=== PATIENT | female | born 1990 | race Two or more races ===

== ENCOUNTER 2017-08-02 03:40 | Inpatient (IN) | payer OTHER ==
[~2017-08-02 03:40] MED LIST: DEXTROSE 5%-LACTATED RINGERS 1,000 ML IV SCH
[2017-08-02 04:47] LABS: BASO % 0.6 % (0-2.0); EOS % 0.6 % (0-4.5); HEMATOCRIT 39.3 % (32.4-45.2); HEMOGLOBIN 13.4 GM/dL (10.7-15.3); MCH 31.9 pg (25.7-33.7); MEAN CELL VOLUME 93.6 fl (80-96); MEAN PLT VOLUME 10.2 fl (7.5-11.1); MONO % 12.2 % (3.8-10.2); NEUT % 66.6 % (42.8-82.8); PLATELET COUNT 193 K/MM3 (134-434); RDW 13.7 % (11.6-15.6); WHITE BLOOD COUNT 11.3 K/mm3 (4.0-10.0)
[2017-08-02 05:04] LABS: INR 0.91 (0.82-1.09); PROTHROMBIN TIME (PATIENT) 10.3 SEC (9.98-11.88)
[2017-08-02 05:20] VITALS: BMI 24.4
[2017-08-02 05:26] LABS: ANION GAP 9 (8-16); BLOOD UREA NITROGEN 14 mg/dL (7-18); CALCIUM 8.5 mg/dL (8.5-10.1); CHLORIDE 107 mmol/L (98-107); CO2 22 mmol/L (21-32); CREATININE 0.6 mg/dL (0.55-1.02); GLUCOSE,RANDOM 104 mg/dL (74-106); SODIUM 138 mmol/L (136-145)
[2017-08-02 06:54] LABS: COCAINE, UR NEGATIVE ng/ml (CUTOFF=300); METHADONE, UR NEGATIVE ng/ml (CUTOFF=300); OPIATES, URI NEGATIVE ng/ml (CUTOFF=300); PHENCYCLIDINE,URINE NEGATIVE ng/ml (CUTOFF=25); URINE AMPHETAMINES NEGATIVE ng/ml (CUTOFF=500); URINE BARBITURATES NEGATIVE ng/ml (CUTOFF=200); URINE BENZODIAZEPINES NEGATIVE ng/ml (CUTOFF=200)
[2017-08-02] MEDS ORDERED: BUTORPHANOL TARTRATE 1 MG/ML VIAL IVPB ONE (07:39)
[2017-08-02] MEDS ORDERED: PROMETHAZINE HCL 25 MG/1 ML VIAL IVPUSH ONE (07:39)
[2017-08-02] MEDS ORDERED: SODIUM PHOSPHATE/NA BIPHOS 133 ML ENEMA PR ONE (07:41)
[2017-08-02] MEDS ORDERED: DEXTROSE 5%-LACTATED RINGERS 1,000 ML IV SCH (07:45)
--- NOTE | 2017-08-02 07:45 | HP ---
Past Medical History - Primary Care Physician PCP:: Mary Treviño - Admission Chief Complaint: 27 yrs , 41 weeks gestation is admitted in early labor. onset LP since 1.00AM History of Present Illness: pnc t 2, [facility] , Late registration at 29 weeks . wt gain 60 LBS. 05/11/17 Panel : Pap nilm, gc/ct neg.. O pos, Rpr nr, Hbsag neg, Rubella pos, Sickle neg, Hiv neg, 1 Hr [id number], Quantiferon neg 07/06/17 : gc/ct/ neg.GBS neg.Hiv neg pt was followed by MFM for growth Post dated pregn was monitored by NST & BPP 07/29/17 sono SLIUP,Vx, pt was placed on Bpp8/8, ÓSCAR 17.4 cm, EFW 8'13" . Pt was placed on Adenosine for SVT in early pregn by her ladies underwear operator on Adenosine in [place] . cardiology consult from Heladio Lizama obtained in February & reviewed . expectant observation . no meds reqd. she was on baby aspirin until 36 weeks . c History Source: Patient, Medical Record Limitations to Obtaining History: No Limitations - Past Medical History CAREER DEVELOPMENT COORDINATOR: No: Alzheimer's, CVA, Dementia, Migraine, Multiple Sclerosis, Peripheral Neuropathy, Parkinson's, Seizure, Syncope, TIA, Vertigo, Other Cardiovascular: Yes: Other (h/o SVT , cardiloloy consult with Dr Heladio Lizama , imp non sp tachycardia .) Pulmonary: No: Asthma, Bronchitis, Cancer, COPD, O2 Dependent, Pneumonia, Previously Intubated, Pulmonary Embolus, Pulmonary Fibrosis, Sleep Apnea, Other Gastrointestinal: No: Ascites, Cancer, Constipation, Crohn's Disease, Diverticulitis, Diverticulosis, Esophageal Varices, Gastritis, GERD, GI Bleed, Hemorrhoids, Hiatal Hernia, Inflamatory Bowel Disease, Irritable Bowel Disease, Pancreatitis, Peptic Ulcer Disease, Ulcerative Colitis, Other Hepatobiliary: No: Cirrhosis, Cholelithiasis, Cholecystitis, Choledocholithiasis , Hepatitis A, Hepatitis B, Hepatitis C, Other Reproductive: No: Ectopic , Endometriosis, Fibroids, PID, Polycystic Ovary Syndrome, Postmenopausal, Other ...: 1 ...Para: 0 ...Term: 0 ...: 0 ...Spon : 0 ...Induced : 0 ...Multiple Gestation: 0 ...LMP: 10/18/16 ... Weeks Gestation by Dates: 41.1 ...EDC by Dates: 07/25/17 ...EDC by Sono: 07/25/17 Infectious Disease: No: Tuberculosis (Quantiferon neg 05/11/17 h/o + ppd in past cxr neg in 2009 , she took tb meds only for 1 month in [place]) Psych: Yes: Anxiety Musculoskeletal: Yes: Other (declined) ENT: Yes: Other (declined) Endocrine: No: Mchenry's Disease, [place]'s Disease, Diabetes Insipidus, Diabetes Mellitus, Hyperparathyroidism, Hyperthyroidism, Hypothyroidism, Osteopenia, SIADH, Other - Past Surgical History Past Surgical History: Yes: Appendectomy Hx Myomectomy: No Hx Transabdominal Cerclage: No - Smoking History Smoking history: Never smoked Have you smoked in the past 12 months: No - Alcohol/Substance Use Hx Alcohol Use: No History of Substance Use: reports: None Home Medications - Allergies Allergies/Adverse Reactions: Allergies Allergy/AdvReac Type Severity Reaction Status Date / Time No Known Drug Allergies Allergy Verified 08/02/17 04:48 - Home Medications Home Medications: Ambulatory Orders Vitamins (Sjr) - 1 tab PO DAILY 08/02/17 Physical Exam - Maternity Vital Signs: Vital Signs Temperature 98.5 F 08/02/17 06:00 Pulse Rate 86 08/02/17 06:00 Respiratory Rate 20 08/02/17 06:00 Blood Pressure 123/74 08/02/17 06:00 O2 Sat by Pulse Oximetry (%) Constitutional: Yes: Well Nourished, Moderate Distress Eyes: Yes: WNL HENT: Yes: WNL, Normocephalic Neck: Yes: WNL Cardiovascular: Yes: WNL, Regular Rate and Rhythm Lungs: Clear to auscultation Breast(s): Yes: WNL - Abdominal Exam/OB Fundal Height: 40 Number of Fetuses: Single Presentation: Vertex Contractions: Yes Regularity: Irregular (2-4 min) Monitor Mode: External (140) Heart Rate Location: [facility] Category: I Accelerations: Uniform - Vaginal Exam/OB Vaginal Bleediing: Bloody Show Dilatation (cm): 1 Effacement (%): 80 Amniotic Membrane Status: Intact Presentation: Vertex/Position (exam at 7.30 AM) Station: -3 - Physical Exam Musculoskeletal: Yes: WNL Extremities: Yes: WNL. No: Calf Tenderness Edema: Yes Edema: LLE: 2+, RLE: 2+ Integumentary: Yes: WNL Deep Tendon Reflex Grade: Normal +2 ...Motor Strength: WNL Psychiatric: Yes: WNL, Alert, Oriented - Labs Lab Results: CBC, BMP 08/02/17 04:25 08/02/17 04:25 Problem List - Problems (1) 41 weeks gestation of Code(s): Z3A.41 - 41 WEEKS GESTATION OF (2) Labor established Code(s): WQA4013 - Assessment/Plan 27 yrs 41 weeks gestation admitted in early labor Plan trial of labor for vag del Stadol + phenrgan for labor analgesia followed by epidural Pitocin augmentation PRN
[2017-08-02] MEDS ORDERED: OXYTOCIN 30 UNITS in 0.9% NS 30 UNIT/500 ML INFUS.BAG IVPB ONE (11:41)
[2017-08-02] MEDS ORDERED: OXYTOCIN 30 UNITS in 0.9% NS 30 UNIT/500 ML INFUS.BAG IVPB SCH (12:15)
[2017-08-02] MEDS ORDERED: BUTORPHANOL TARTRATE 1 MG/ML VIAL ONE ×2 (12:39)
[2017-08-02] MEDS ORDERED: PROMETHAZINE HCL 25 MG/1 ML VIAL ONE (12:40)
[2017-08-02] MEDS ORDERED: ELECTROLYTE-148 SOLN 1,000 ML IV SCH (15:00)
[2017-08-02] MEDS ORDERED: OXYTOCIN 20 UNITS in 0.9% NS 20 UNIT/1,000 ML INFUS.BAG IV ONE (15:07)
[2017-08-02] MEDS ORDERED: LIDOCAINE HCL 1% PRESERVATIVE FREE - 30ML VIAL ONE (15:07)
[2017-08-02] MEDS ORDERED: FENTANYL/BUPIVACAINE/NS/PF - PCEA - 50 ML DISP.SYRIN EP ONE (15:11)
--- NOTE | 2017-08-02 17:01 | PN ---
Progress Note, Labor Vaginal Exam #1 Labor Exam Date: 08/02/17 Labor Exam Time: 15:40 Heart Rate (range): 150 Dilatation: 8-9 Effacement (%): 100 Amniotic Membrane Status: Ruptured Presentation: Vertex/Position Station: 0 Remarks: uc 3-5 min irregular, , dysfucional fhr cat-1 SROM at 2.50 PM brown color fluid Epidural given at 3.35 pm Vaginal Exam #2 Labor Exam Date: 08/02/17 Labor Exam Time: 16:50 Heart Rate (range): 150 Dilatation: 9 Effacement (%): 100 Amniotic Membrane Status: Ruptured Station: +1 Remarks: cat-2 , mild variables . UC 2-4 min scalp electrode applied Selected Entries 08/02/17 16:15 Pulse Rate 97 H Blood Pressure 115/63 Vaginal Exam #3 Labor Exam Date: 08/02/17 Labor Exam Time: 18:00 Heart Rate (range): 155 Dilatation: antlip Amniotic Membrane Status: Ruptured Presentation: Vertex/Position Station: +2 Remarks: fhr cat-1 in Rt lateral position UC 1-[address] trial of labor Selected Entries 08/02/17 18:00 Temperature 98.4 F BP 104/45 Pulse 85 /min Vaginal Exam #4 Labor Exam Date: 08/02/17 Labor Exam Time: 19:00 Heart Rate (range): 150 Dilatation: 10 Effacement (%): 100 Amniotic Membrane Status: Ruptured Station: +3 Remarks: uc 1--2-3 min fhr cat-1 14.15 pt encouraged to push .
[2017-08-02] MEDS: ACETAMINOPHEN 325 MG TABLET (FP) PO PRN (20:50)
[2017-08-02] MEDS: IBUPROFEN 600 MG TABLET (FP) PO PRN (20:50)
[2017-08-02] MEDS ORDERED: IBUPROFEN 600 MG TABLET (FP) PO ONE (20:52)
[2017-08-02] MEDS ORDERED: ACETAMINOPHEN 325 MG TABLET (FP) ONE (20:52)
[2017-08-02 21:01] LABS: ARTERIAL BLOOD GAS BASE EXCESS -3.7 meq/l (-2-2); ARTERIAL BLOOD GAS PCO2 38.7 mmHg (35-45); ARTERIAL BLOOD GAS pH 7.35 (7.35-7.45)
[2017-08-02 21:09] LABS: ARTERIAL BLOOD GAS PO2 29.7 mmHg (80-100)
[2017-08-02 21:10] LABS: ARTERIAL BLD GAS O2 SATURATION 61.7 % (90-98.9)
[2017-08-02] MEDS ORDERED: WITCH HAZEL 50% (TUCKS) 40 PAD/JAR PAD TP PRN (21:10)
[2017-08-02] MEDS ORDERED: METHYLERGONOVINE MALEATE 0.2 MG/1 ML AMP IM PRN (21:10)
[2017-08-02] MEDS ORDERED: ACETAMINOPHEN 325 MG TABLET (FP) PO PRN (21:10)
[2017-08-02] MEDS ORDERED: BISACODYL 10 MG SUPP.RECT RC PRN (21:10)
[2017-08-02] MEDS ORDERED: BENZOCAINE 20% 57 GM BOTTLE TP PRN (21:10)
[2017-08-02] MEDS ORDERED: BENZOCAINE 28 GM HEMORRHOIDAL OINTMENT TP PRN (21:10)
[2017-08-02 21:12] LABS: VENOUS PC02 37.7 mmHg (38-52); VENOUS PH 7.36 (7.32-7.42); VENOUS PO2 32.3 mmHg (28-48)
[2017-08-02] MEDS ORDERED: OXYTOCIN 20 UNITS in 0.9% NS 20 UNIT/1,000 ML INFUS.BAG IV SCH (21:15)
[2017-08-02] MEDS ORDERED: oxyCODONE HCL 5 MG TABLET PO PRN (21:16)
--- NOTE | 2017-08-02 21:23 | PN ---
Delivery - Delivery Vaginal Delivery: No Problems, Spontaneous (delievered vx presentaion , JENNIFER position, cord around neckx1 released before delivery of shoulder ,& rest of the body delivered,immediate oral & nasal suction was done . placenta delivered uneventfully. Light meconium in AFluid noted) Type of Anesthesia: Local, Epidural Episiotomy/Laceration: Midline (episitomy was sutured in layers with chr catgut #2/0. Mucosa & sphincter intact) EBL (cc): 350 (bladder catheterized & emptied 50 ml) Delivery, Single - Stages of Labor Date 1st Stage Initiatied: 08/02/17 Time 1st Stage Initiated: 01:00 Date 2nd Stage Initiated: 08/02/17 Time 2nd Stage Initiated: 19:00 Date of Delivery: 08/02/17 Time of Delivery: 20:19 Date Placenta Delivered: 08/02/17 Time Placenta Delivered: 20:25 Placenta: Yes: Spontaneous, Uterine Exploration - Condition of Infant Milk House Worker/Egg Processor Present: No Gender: Male Weight: 8 lb 4 oz Position: Left, OA - 1 Minute Total Score: 9 5 Minutes Total Score: 9 - [place] Feeding Plan Initial Plan: Exclusive throughout hospitalization Remarks - Remarks Remarks: 27 yrs , 41 weeks gestation , admitted in early labpr . pnc at , [facility] Gbs neg. Stadol 2mg + Phenrgan 25 mg iv stat followed by epidural , was given for labor analgesia Intra course unevetful
--- NOTE | 2017-08-03 06:08 | PN ---
Post Progress Note - Subjective Subjective: c/o perineal soreness & cramps Post Day: 1 Type of Delivery: Vital Signs: Vital Signs Temperature 98.6 F 08/03/17 04:00 Pulse Rate 91 H 08/03/17 04:00 Respiratory Rate 20 08/03/17 04:00 Blood Pressure 105/70 08/03/17 04:00 O2 Sat by Pulse Oximetry (%) 100 08/02/17 22:00 Breast Exam: Yes: Soft. No: Engorged Uterus: Yes: Fundus Firm, Fundus below umbilicus, Non-tender Lochia: Yes: Rubra Lochia, amount: Moderate Extremities: Yes: Calves non-tender, Edema (+/=). No: Calf tenderness Perineum: Yes: Intact, Episiotomy (healing ) Activity: Ambulating - Labs Labs: CBC WBC 11.3 K/mm3 (4.0-10.0) H 08/02/17 04:25 RBC 4.20 M/mm3 (3.60-5.2) 08/02/17 04:25 Hgb 13.4 GM/dL (10.7-15.3) 08/02/17 04:25 Hct 39.3 % (32.4-45.2) 08/02/17 04:25 MCV 93.6 fl (80-96) 08/02/17 04:25 MCH 31.9 pg (25.7-33.7) 08/02/17 04:25 MCHC 34.0 g/dl (32.0-36.0) 08/02/17 04:25 RDW 13.7 % (11.6-15.6) 08/02/17 04:25 Plt Count 193 K/MM3 (134-434) 08/02/17 04:25 MPV 10.2 fl (7.5-11.1) 08/02/17 04:25 Neutrophils % 66.6 % (42.8-82.8) 08/02/17 04:25 Lymphocytes % 20.0 % (8-40) 08/02/17 04:25 Monocytes % 12.2 % (3.8-10.2) H 08/02/17 04:25 Eosinophils % 0.6 % (0-4.5) 08/02/17 04:25 Basophils % 0.6 % (0-2.0) 08/02/17 04:25 Problem List - Problems (1) 41 weeks gestation of Code(s): Z3A.41 - 41 WEEKS GESTATION OF (2) Labor established Code(s): DRG7194 - (3) Normal vaginal delivery Code(s): O80 - ENCOUNTER FOR FULL-TERM UNCOMPLICATED DELIVERY Assessment/Plan stable. plan cbc today encourage ambulation & po fluids
[2017-08-03] MEDS: IBUPROFEN 600 MG TABLET (FP) PO PRN ×2 (07:36→20:21)
[2017-08-03] MEDS: ACETAMINOPHEN 325 MG TABLET (FP) PO PRN ×2 (07:38→20:22)
[2017-08-03] MEDS: FERROUS SO4 325 MG TABLET (FP) PO SCH ×2 (07:39→17:18)
[2017-08-03 08:41] LABS: BASO % 0.2 % (0-2.0); EOS % 0.4 % (0-4.5); HEMATOCRIT 29.7 % (32.4-45.2); HEMOGLOBIN 10.1 GM/dL (10.7-15.3); LYMPH % 14.8 % (8-40); MEAN PLT VOLUME 9.4 fl (7.5-11.1); MONO % 9.8 % (3.8-10.2); NEUT % 74.8 % (42.8-82.8); PLATELET COUNT 170 K/MM3 (134-434); RBC 3.16 M/mm3 (3.60-5.2); RDW 13.7 % (11.6-15.6); WHITE BLOOD COUNT 15.2 K/mm3 (4.0-10.0)
[2017-08-03] MEDS: PRENATAL VITAMINS W/ FOLIC ACID TABLET (FP) PO SCH (09:13)
[2017-08-03] MEDS ORDERED: SENNOSIDES/DOCUSATE COMBO (SENNA PLUS) TABLET (UD) PO PRN (22:00)
--- NOTE | 2017-08-04 08:02 | DS ---
Physical Exam-SMOKED MEAT PREPARER Vital Signs: Vital Signs Temperature 98.4 F 08/03/17 22:00 Pulse Rate 83 08/03/17 22:00 Respiratory Rate 18 08/03/17 22:00 Blood Pressure 98/56 08/03/17 22:00 O2 Sat by Pulse Oximetry (%) 100 08/02/17 22:00 Constitutional: Yes: Well Nourished Eyes: Yes: Conjunctiva Clear HENT: Yes: Atraumatic Neck: Yes: Supple Cardiovascular: Yes: Regular Rate and Rhythm Respiratory: Yes: Regular Gastrointestinal: Yes: Normal Bowel Sounds Pelvis: Yes: WNL Vaginal Exam: Yes: Normal Cervix: Yes: Normal Uterus: Yes: Firm ....Post : Yes: Uterus firm, Moderate lochia serosa Breast(s): Yes: WNL Musculoskeletal: Yes: WNL Extremities: Yes: WNL Neurological: Yes: Alert, Oriented ...Motor Strength: WNL Psychiatric: Yes: Alert, Oriented Labs: CBC, BMP 08/03/17 08:25 08/02/17 04:25 Delivery - Delivery Vaginal Delivery: No Problems, Spontaneous (delievered vx presentaion , JENNIFER position, cord around neckx1 released before delivery of shoulder ,& rest of the body delivered,immediate oral & nasal suction was done . placenta delivered uneventfully. Light meconium in AFluid noted) Type of Anesthesia: Local, Epidural Episiotomy/Laceration: Midline EBL (cc): 350 Delivery, Single - Stages of Labor Date 1st Stage Initiatied: 08/02/17 Time 1st Stage Initiated: 01:00 Date 2nd Stage Initiated: 08/02/17 Time 2nd Stage Initiated: 19:00 Date of Delivery: 08/02/17 Time of Delivery: 20:19 Time Placenta Delivered: 20:25 Placenta: Yes: Spontaneous, Uterine Exploration - Condition of Infant Art Specialist/Director Of Patient Financial Services Present: No Infant Gender: Male Weight: 8 lb 4 oz Position: Left, OA Total Hours ROM (Hrs/Mins): 5hrs/29mins - 1 Minute Total Score: 9 5 Minutes Total Score: 9 - [place] Feeding Plan Initial Plan: Exclusive throughout hospitalization Discharge Summary Reason For Visit: LABOR ADMIT Current Active Problems 41 weeks gestation of (Acute) Labor established (Acute) Normal vaginal delivery (Acute) Procedures: Principal: Normal vaginal delivery Hospital Course: Routine care Condition: Stable - Instructions Diet, Activity, Other Instructions: Post Instructions DIET: Continue good diet high in protein, calcium, and iron rich foods. Drink at least eight (8) glasses of water daily in addition to other fluids. ___ Regular diet MEDICATIONS: Continue vitamins and iron as previously directed. Motrin and Tylenol may be taken for minor discomfort. ACTIVITY: Mild to moderate exercise may be started in two (2) weeks. Take frequent rest periods. Resume normal activity after six (6) week check up. WOUND CARE OF OPERATIVE SITE: Continue use of perineal bottle until vaginal discharge stops. Keep area clean. Shower daily. Keep abdominal wound dry. Report any drainage or redness to physician. Tub baths, tampons and douches are not permitted for 6 weeks.. Sitz bath tid prn for perineal pain ct Breast feeding & or Bottle feeding BREAST CARE: (For those that are not breast feeding): If engorgement occurs: Wear tight fitting bra. Take Tylenol or Motrin for pain. Apply cold packs (ice in bags to each breast ) FAMILY PLANNING: There are many control alternatives to pursue and they should be discussed at your first office visit. You may resume sexual activity after your six (6) week check up. (Remember, breast feeding is not a contraceptive) NEXT PHYSICIAN APPOINTMENT: Be certain to call for a six (6) week appointment, unless otherwise directed. Call Clinic or got to Emergency Dept if you have any of the following: Heavy vaginal bleeding Painful urination Leg pain Unusual odor noted to vaginal bleeding High fever Red streaking noted on breast Referrals: Mary Treviño MD [Staff Physician] - Disposition: HOME - Home Medications Comprehensive Discharge Medication List: Ambulatory Orders Vitamins (Sjr) - 1 tab PO DAILY 08/02/17 Acetaminophen [Tylenol .Regular Strength -] 650 mg PO Q3H PRN tablet 08/03/17 Benzocaine [Americaine 20% [place] -] 1 spray TP PRN PRN bottle 08/03/17 Docusate Sodium [Colace] 100 mg PO BID #60 capsule 08/03/17 Ferrous Sulfate [Feosol] 325 mg PO BIDWM tab 08/03/17 Ibuprofen [Motrin -] 200 mg PO Q4H PRN tablet 08/03/17 Vitamins (Sjr) - 1 tab PO DAILY #30 tablet 08/03/17 Witalda Johnna 50% (David) [Tucks Pads -] 1 pad TP PRN PRN pad 08/03/17
[2017-08-04] MEDS: FERROUS SO4 325 MG TABLET (FP) PO SCH (08:18)
[2017-08-04 08:59] VITALS: BP 112/73; PULSE 81; TEMP 98.6
[2017-08-04] MEDS: IBUPROFEN 600 MG TABLET (FP) PO PRN (10:02)
[2017-08-04] MEDS: ACETAMINOPHEN 325 MG TABLET (FP) PO PRN (10:03)
[2017-08-04] MEDS: PRENATAL VITAMINS W/ FOLIC ACID TABLET (FP) PO SCH (10:03)
== END 2017-08-04 11:30 | disposition home or self-care (01) | DRG 560 ==
LOC: JLDR 03:40 → J3W 23:30
PROVIDERS: ADMIT Obstetrics & Gynecology; ATTEND Obstetrics & Gynecology
PROC: 10E0XZZ Delivery of Products of Conception, External Approach (ICD-10-PCS; principal; 2017-08-02)
PROC: 0W8NXZZ Division of Female Perineum, External Approach (ICD-10-PCS; 2017-08-02)
DX: O48.0 Post-term pregnancy (principal); O69.81X0 Labor and delivery complicated by cord around neck, without compression, not applicable or unspecified; O77.0 Labor and delivery complicated by meconium in amniotic fluid; Z3A.41 41 weeks gestation of pregnancy; Z37.0 Single live birth
CPT/HCPCS: 36415; 36600; 59409; 80048; 80307; 82803; 85025; 85610; 85730; 86593; 86850; 86900; 86901

== ENCOUNTER 2021-04-06 08:04 | Inpatient (IN) | payer OTHER ==
[2021-04-06] MEDS ORDERED: ELECTROLYTE-148 SOLN 1,000 ML IV SCH (09:45)
[2021-04-06] MEDS ORDERED: OXYTOCIN 30 UNITS in 0.9% NS 30 UNIT/500 ML INFUS.BAG IVPB SCH (09:45)
[2021-04-06] MEDS ORDERED: AMPICILLIN - 2 GM in SODIUM CHLORIDE 100 ML IVPB ONE (10:00)
[2021-04-06] MEDS ORDERED: AMPICILLIN SODIUM 2 GM VIAL ONE (10:07)
[2021-04-06] MEDS ORDERED: OXYTOCIN 30 UNITS in 0.9% NS 30 UNIT/500 ML INFUS.BAG IVPB ONE (10:08)
[2021-04-06 10:11] LABS: BASO % 0.5 % (0-2.0); EOS % 1.3 % (0-4.5); HEMATOCRIT 33.6 % (32.4-45.2); HEMOGLOBIN 11.9 GM/dL (10.7-15.3); LYMPH % 23.8 % (8-40); MCH 32.2 pg (25.7-33.7); MCHC 35.6 g/dl (32.0-36.0); MEAN CELL VOLUME 90.4 fl (80-96); MEAN PLT VOLUME 8.4 fl (7.5-11.1); NEUT % 63.4 % (42.8-82.8); PLATELET COUNT 205 10^3/uL (134-434); RBC 3.71 M/mm3 (3.60-5.2); RDW 13.2 % (11.6-15.6); WHITE BLOOD COUNT 6.6 K/mm3 (4.0-10.0)
[2021-04-06 10:18] LABS: INR 0.96 (0.83-1.09); PROTHROMBIN TIME (PATIENT) 10.8 SEC (9.7-13.0)
[2021-04-06 10:21] LABS: ACTIVATED PTT 26.8 SECONDS (25.2-36.5)
[2021-04-06 10:33] LABS: CALCIUM 8.4 mg/dL (8.5-10.1)
[2021-04-06 10:34] LABS: BLOOD UREA NITROGEN 12.5 mg/dL (7-18)
[2021-04-06 10:37] LABS: CREATININE 0.6 mg/dL (0.55-1.3)
[2021-04-06 11:24] VITALS: BMI 29.7
[2021-04-06] MEDS ORDERED: AMPICILLIN SODIUM 1 GM VIAL ONE ×2 (14:03→18:00)
[2021-04-06] MEDS: AMPICILLIN - 1 GM in SODIUM CHLORIDE 100 ML IVPB SCH ×3 (14:10→22:42)
[2021-04-06] MEDS ORDERED: PCA PUMP NR ONE (15:18)
[2021-04-06] MEDS ORDERED: FENTANYL/BUPIVACAINE/NS/PF - PCEA - 50 ML DISP.SYRIN EP ONE (15:19)
[2021-04-06] MEDS ORDERED: NALOXONE HCL 0.4 MG/ML VIAL IVPUSH PRN (16:16)
[2021-04-06] MEDS ORDERED: FENTANYL/BUPIVACAINE/NS/PF - PCEA - 50 ML DISP.SYRIN EP SCH (16:30)
[2021-04-06] MEDS ORDERED: LIDOCAINE HCL 1% PRESERVATIVE FREE - 30ML VIAL ONE (19:55)
[2021-04-06] MEDS ORDERED: OXYTOCIN 20 UNITS in 0.9% NS 20 UNIT/1,000 ML INFUS.BAG IV ONE (19:55)
[2021-04-06] MEDS: METHYLERGONOVINE MALEATE 0.2 MG/1 ML AMP IM PRN (20:55)
[2021-04-06] MEDS ORDERED: IBUPROFEN 600 MG TABLET (FP) PO PRN (21:59)
[2021-04-06] MEDS ORDERED: BENZOCAINE 28 GM HEMORRHOIDAL OINTMENT TP PRN (21:59)
[2021-04-06] MEDS ORDERED: BENZOCAINE 20% 57 GM BOTTLE TP PRN (21:59)
[2021-04-06] MEDS ORDERED: WITCH HAZEL 50% (TUCKS) 40 PAD/JAR PAD TP PRN (21:59)
[2021-04-06] MEDS ORDERED: BISACODYL 10 MG SUPP.RECT RC PRN (21:59)
[2021-04-06] MEDS ORDERED: OXYTOCIN 20 UNITS in 0.9% NS 20 UNIT/1,000 ML INFUS.BAG IV SCH (22:00)
[2021-04-07] MEDS: METHYLERGONOVINE MALEATE 0.2 MG/1 ML AMP IM PRN (04:49)
[2021-04-07] MEDS: ACETAMINOPHEN 325 MG TABLET (FP) PO PRN (06:36)
[2021-04-07 07:29] LABS: BASO % 0.2 % (0-2.0); EOS % 0.5 % (0-4.5); HEMOGLOBIN 13.4 GM/dL (10.7-15.3); LYMPH % 13.8 % (8-40); MCHC 34.3 g/dl (32.0-36.0); MEAN CELL VOLUME 93.5 fl (80-96); MEAN PLT VOLUME 8.4 fl (7.5-11.1); MONO % 8.7 % (3.8-10.2); NEUT % 76.8 % (42.8-82.8); PLATELET COUNT 210 10^3/uL (134-434); RBC 4.17 M/mm3 (3.60-5.2); RDW 13.2 % (11.6-15.6); WHITE BLOOD COUNT 14.4 K/mm3 (4.0-10.0)
[2021-04-07] MEDS ORDERED: SENNOSIDES/DOCUSATE COMBO (SENNA PLUS) TABLET (UD) PO PRN (22:00)
[2021-04-08] MEDS: ACETAMINOPHEN 325 MG TABLET (FP) PO PRN (01:47)
[2021-04-08 09:22] VITALS: BP 112/57; PULSE 56; TEMP 97.9
== END 2021-04-08 12:00 | disposition home or self-care (01) | DRG 560 ==
LOC: JLDR 08:04 → J3W 23:20
PROVIDERS: ADMIT Specialist; ATTEND Specialist
PROC: 10E0XZZ Delivery of Products of Conception, External Approach (ICD-10-PCS; principal; 2021-04-06)
DX: O36.63X0 Maternal care for excessive fetal growth, third trimester, not applicable or unspecified (principal); O36.8330 Maternal care for abnormalities of the fetal heart rate or rhythm, third trimester, not applicable or unspecified; O26.53 Maternal hypotension syndrome, third trimester; Z3A.39 39 weeks gestation of pregnancy; Z22.330 Carrier of Group B streptococcus; Z37.0 Single live birth
CPT/HCPCS: 36415; 59409; 80048; 85025; 85610; 85730; 86780; 86850; 86900; 86901; 87340